=== PATIENT | female | born 1950 | race Two or more races ===

== ENCOUNTER 2020-07-26 12:20 | Emergency (ER) | payer MEDICARE, MEDICAID ==
[~2020-07-26] VITALS: Ht 149.9 cm; Wt 86.5 kg
--- NOTE | 2020-07-26 13:02 | NUR ---
REPORT GIVEN TO ROMEL.
[2020-07-26] MEDS ORDERED: NOVOLOG (13:07)
[2020-07-26] MEDS ORDERED: CELLCEPT (13:07)
[2020-07-26] MEDS ORDERED: LOSARTAN (13:07)
[2020-07-26] MEDS ORDERED: LANTUS (13:07)
[2020-07-26] MEDS ORDERED: ALLOPURINOL (13:07)
[2020-07-26] MEDS ORDERED: XARELTO (13:07)
[2020-07-26] MEDS ORDERED: OMEPRAZOLE (13:07)
[2020-07-26] MEDS ORDERED: ATORVASTATIN (13:07)
[2020-07-26 13:19] LABS: BASOPHILS % (AUTO) 1 % (0-1); EOSINOPHILS % (AUTO) 0 % (1-7); LYMPHOCYTES % (AUTO) 15 % (22-44); MD NO; MEAN CORPUSCULAR HEMOGLOBIN 28.8 pg (27.0-34.8); MEAN CORPUSCULAR HGB CONC 33.6 g/dL (32.4-35.8); MEAN PLATELET VOLUME 8.9 fL (7.4-10.4); MONOCYTES % (AUTO) 10 % (2-9); NEUTROPHILS % (AUTO) 74 % (42-75); PLATELET COUNT 177 x10^3/uL (130-400); RED BLOOD COUNT 4.74 x10^6/uL (3.82-5.3); RED CELL DISTRIBUTION WIDTH 13.9 % (9.6-15.2)
[2020-07-26 13:23] LABS: ALBUMIN 3.1 g/dL (3.4-5.0); CALCIUM 10.3 mg/dL (8.5-10.1); CHLORIDE 108 mmol/L (98-107)
[2020-07-26 13:28] LABS: ALANINE AMINOTRANSFERASE 33 U/L (12-78); ALKALINE PHOSPHATASE 103 U/L (45-117); ANION GAP 5 mmol/L (5-15); BILIRUBIN,TOTAL 0.2 mg/dL (0.2-1.0); TOTAL PROTEIN 7.6 g/dL (6.4-8.2); TROPONIN I < 0.015 ng/mL (0.000-0.045)
--- NOTE | 2020-07-26 13:37 | NUR ---
ASSUMED CARE OF PT, ECHO BEING COMPLETED AT BEDSIDE AT THIS TIME, WILL STRAIGHT CATH PT AFTER COMPLETED
--- NOTE | 2020-07-26 14:13 | NUR ---
PT STRAIGHT CATHED TOLERATED WELL. SPECIMEN WALKED TO LAB, VSS, NAD NOTED
[2020-07-26 14:25] LABS: MICROSCOPIC NOT IND
--- NOTE | 2020-07-26 15:45 | NUR ---
ATTEMPT TO ROAD TEST PT PER ERMD ORDER, PT C/O DIZZINESS AND FEELING SHAKY. WILL UPDATE ERMD
--- NOTE | 2020-07-26 16:28 | NUR ---
ERMD UPDATED ON PT STATUS, ADDITIONAL MEDICATIONS ORDERED, PT MEDICATED PER MAR, GIVEN MEAL TRAY. WILL ATTEMPT TO AMBULATED AT LATER TIME ONCE PT HAS EATEN
[2020-07-26] MEDS ORDERED: SODIUM CHLORIDE 0.9%, 500ML IVBOLUS ONE (16:30)
--- NOTE | 2020-07-26 18:04 | NUR ---
THIS RN IN TO RM, PT ABLE TO TAKE STEPS WITH OUT ASSISTANCE. NO DIZZINESS REPORTED, WILL UPDATE ERMD
[2020-07-26 18:27] VITALS: BP 170/80
--- NOTE | 2020-07-26 18:49 | NUR ---
Patient/Caregiver given discharge instructions and they have confirmed that they understand the instructions. Patient DC IN WHEELCHAIR, ALL BELONGINGS WITH PT ON DC
== END 2020-07-26 18:50 | disposition home or self-care (01) ==
LOC: ED 16:48
DX: R55 Syncope and collapse (principal); E86.0 Dehydration; R53.1 Weakness; R11.0 Nausea; R94.31 Abnormal electrocardiogram [ECG] [EKG]
CPT/HCPCS: 36415; 71045; 76700; 80053; 81003; 83690; 84484; 85025; 96360; 99285; J7040